=== PATIENT | female | born 1960 | race Caucasian/White ===

== ENCOUNTER 2017-11-21 13:47 | Emergency (ER) | payer BC ==
[~2017-11-21] VITALS: Ht 154.9 cm; Wt 78.0 kg
--- NOTE | 2017-11-21 15:04 | Diagnostic Imaging Report ---
PROCEDURE: A single AP view of the chest. COMPARISON: None. INDICATIONS: CHEST PAIN FINDINGS: Lines/tubes: None. Lungs: The lungs are well inflated and clear. There is no evidence of pneumonia or pulmonary edema. Pleura: There is no pleural effusion or pneumothorax. Heart and mediastinum: The heart and the mediastinum are unremarkable. Bones: No acute bony abnormality. IMPRESSION: 1. No acute cardiopulmonary abnormalities. Enrique Curry M.D. Dictated by: Enrique Curry M.D. on 11/21/2017 at 15:07 Electronically approved by: Enrique Curry M.D. on 11/21/2017 at 15:07
[2017-11-21 15:08] LABS: BASOPHILS # (AUTO) 0.1 (0.0-0.1); BASOPHILS % 0.4 % (0.0-1.0); EOSINOPHILS # (AUTO) 0.1 (0.0-0.4); EOSINOPHILS % 1.1 % (0.0-6.0); HEMATOCRIT 41.3 % (34.2-44.1); HEMOGLOBIN 13.6 g/dL (12.0-16.0); LYMPHOCYTES % 25.7 % (18.0-39.1); MEAN CORPUSCULAR HEMOGLOBIN 30.8 pg (28-32); MEAN CORPUSCULAR HGB CONC 32.9 g/dL (31-35); MEAN CORPUSCULAR VOLUME 93.4 fL (81-99); MONOCYTES # (AUTO) 0.5 (0.2-0.8); MONOCYTES % 4.4 % (4.4-11.3); NEUTROPHILS # (AUTO) 7.8 (2.1-6.9); NEUTROPHILS % 67.8 % (38.7-80.0); PLATELET COUNT 162 x10e3/uL (140-360); RED BLOOD COUNT 4.42 x10e6/uL (3.6-5.1); RED CELL DISTRIBUTION WIDTH 13.3 % (11.7-14.4)
[2017-11-21 15:15] LABS: INR 0.96
[2017-11-21 15:16] LABS: PARTIAL THROMBOPLASTIN TIME 23.8 seconds (23.8-35.5)
[2017-11-21 15:25] LABS: ALANINE AMINOTRANSFERASE 18 IU/L (0-55); ALBUMIN 4.4 g/dL (3.5-5.0); ALBUMIN/GLOBULIN RATIO 1.2 (0.8-2.0); ALKALINE PHOSPHATASE 102 IU/L (40-150); ANION GAP 15.4 mmol/L (8-16); BLOOD UREA NITROGEN 13 mg/dL (7-26); BUN/CREATININE RATIO 15 (6-25); CARBON DIOXIDE 23 mmol/L (22-29); CHLORIDE 104 mmol/L (98-107); CREATINE KINASE 189 IU/L (29-168); CREATININE, SERUM 0.89 mg/dL (0.57-1.11); EST GLOMERULAR FILTRATION RATE > 60 ML/MIN (60-); GLUCOSE 84 mg/dL (74-118); POTASSIUM 4.4 mmol/L (3.5-5.1); SODIUM 138 mmol/L (136-145)
[2017-11-21 15:28] LABS: BILIRUBIN,URINE NEGATIVE (NEGATIVE); CLARITY,URINE CLEAR (CLEAR); COLOR,URINE YELLOW (YELLOW); KETONES,URINE NEGATIVE (NEGATIVE); LEUKOCYTE ESTERASE ,URINE NEGATIVE (NEGATIVE); NITRITE,URINE NEGATIVE (NEGATIVE); PROTEIN,URINE DIPSTICK NEGATIVE (NEGATIVE); URINE UROBILINOGEN 0.2 mg/dL (0.2 - 1)
[2017-11-21 15:40] LABS: EPITHELIAL CELLS,URINE MODERATE /LPF; RENAL EPITHELIAL CELLS,URINE FEW
[2017-11-21] MEDS ORDERED: KETOROLAC TROMETHAMINE 30 MG/ML VIAL IV STA (16:36)
[2017-11-21] MEDS ORDERED: DEXAMETHASONE SOD PHOS 10 MG/1 ML VIAL IV ONE (16:45)
[2017-11-21] MEDS ORDERED: DEXAMETHASONE SOD PHOS 10 MG/1 ML VIAL INJ ONE (17:00)
[2017-11-21] MEDS ORDERED: KETOROLAC TROMETHAMINE 30 MG/ML VIAL IM NR (17:00)
--- NOTE | 2017-11-21 18:35 | Diagnostic Imaging Report ---
PROCEDURE: A single AP view of the chest. COMPARISON: Patients [facility], , CHEST SINGLE (NOT PORTABLE), 11/21/2017, 14:41. INDICATIONS: SUBSTERNAL CHEST PAIN FINDINGS: See impression. IMPRESSION: 1. clear lungs. No consolidation or effusion. 2. Cardiomediastinal silhouette is unremarkable. Pulmonary vasculature is normal. 3. No acute bony abnormalities. Enrique Curry M.D. Dictated by: Enrique Curry M.D. on 11/21/2017 at 18:37 Electronically approved by: Enrique Curry M.D. on 11/21/2017 at 18:37
--- NOTE | 2017-11-21 18:36 | Diagnostic Imaging Report ---
PROCEDURE:THORACIC SP 3V COMPARISON:Patients [facility], , CHEST SINGLE (NOT PORTABLE), 11/21/2017, 14:41. INDICATIONS:SUBSTERNAL CHEST PAIN RADIATING TO BACK, NAUSEA FINDINGS:Normal mineralization. No acute, displaced fracture or dislocation. No lytic or blastic lesions. Mild multilevel degenerative disc changes in the thoracic spine. Satisfactory alignment. Paravertebral soft tissues are unremarkable. Atherosclerotic calcification of the proximal abdominal aorta. CONCLUSION:No acute abnormalities. Enrique Curry M.D. Dictated by: Enrique Curry M.D. on 11/21/2017 at 18:38 Electronically approved by: Enrique Curry M.D. on 11/21/2017 at 18:38
== END 2017-11-21 19:44 | disposition home or self-care (01) ==
LOC: ER 13:47
CPT/HCPCS: 36415; 71045; 72072; 80053; 81001; 82550; 82553; 84484; 85025; 85610; 85730; 93005; 93307; 99284; J1100; J1885